=== PATIENT | female | born 1985 | race Caucasian/White ===

== ENCOUNTER 2017-04-10 03:07 | Observation (INO) | payer SELFPAY ==
[2017-04-10] MEDS ORDERED: NS 1,000 ML IV ONE ×2 (03:16→04:28)
[2017-04-10] MEDS ORDERED: HYDROmorphONE/DILAUDID 1 MG/ML INJ IVP ONE ×4 (03:16→05:47)
[2017-04-10] MEDS ORDERED: ONDANSETRON 4 MG/2 ML VIAL IVP ONE ×2 (03:17→03:37)
--- NOTE | 2017-04-10 03:24 | EDPHY ---
H & P Stated Complaint: LLQ ABDO PAIN, Vomiting since 0200 hours Time Seen by Provider: 04/10/17 03:16 HPI/ROS: HPI CHIEF COMPLAINT: Left low pelvic pain sudden onset. HISTORY OF PRESENT ILLNESS: Patient is a 32-year-old female, she is otherwise healthy, she has had an appendectomy she presents emergency room with sudden onset 1 hour ago left low adnexal pain. She describes as sharp stabbing. She denies flank pain. Denies urinary symptoms. Denies vaginal discharge. States complete her. 1 week ago. Does have history ovarian cyst. But never had pain like this. This sharp stabbing pain woke her up from sleep. She vomited multiple times. No diarrhea. She does ongoing nausea. She describes the pain as 8/10 left adnexal regions sharp stabbing. Constant. Does not radiate to her back. Denies fever. Denies trauma. Past Medical History: Ovarian cyst Past Surgical History: Appendectomy Social History: Denies daily use drugs alcohol tobacco products. Lives locally. Family History: Noncontributory. ROS REVIEW OF SYSTEMS: A comprehensive 10 point review of systems is otherwise negative aside from elements mentioned in the history of present illness. Exam Constitutional appears nontoxic, but uncomfortable, triage nursing summary reviewed, vital signs reviewed, awake/alert. Eyes normal conjunctivae and sclera, EOMI, PERRLA. HENT normal inspection, atraumatic, moist mucus membranes, no epistaxis, neck supple/ no meningismus, no raccoon eyes. Respiratory clear to auscultation bilaterally, normal breath sounds, no respiratory distress, no wheezing. Cardiovascular rate normal, regular rhythm, no murmur, no edema, distal pulses normal. Gastrointestinal soft, moderate left adnexal pain on exam, no palpable mass, will no left lower quadrant pain, no flank pain,, no rebound, no guarding, normal bowel sounds, no distension, no pulsatile mass. Genitourinary no CVA tenderness. Musculoskeletal no midline vertebral tenderness, full range of motion, no calf swelling, no tenderness of extremities, no meningismus, good pulses, neurovascularly intact. Skin pink, warm, & dry, no rash, skin atraumatic. Neurologic awake, alert and oriented x 3, AAOx3, moves all 4 extremities equally, motor intact, sensory intact, CN II-XII intact, normal cerebellar, normal vision, normal speech. Psychiatric normal mood/affect. Heme/Lymph/Immune no lymphadenopathy. Differential diagnosis includes but is not limited to and in no particular order: Reviewed cyst rupture, ovarian torsion, Bowel obstruction, appendicitis , gallbladder disease, diverticulitis, colitis, enteritis, perforated viscus, gastritis, GERD, esophagitis, urinary tract infection, pyelonephritis, kidney stones Medical Decision Making: Plan for this patient IV establishment IV fluid bolus , IV Dilaudid for pain control, IV Zofran nausea, check blood work, urinalysis, stat pelvic ultrasound. Re-evaluate. Re-evaluation: 0429: This patient continues to hill of left adnexal pain. She does state it does radiate to her left back slightly. Her urinalysis reviewed shows blood. She is not on her period. It is possible this is not ovarian cyst rupture or torsion and it is possible this is a kidney stone causing her pain. I have ordered her 15 mg IV Toradol as her creatinine is normal. I 2nd L fluid she still feels nauseous 6.25 Phenergan this time. Will re-evaluate. Ultrasound is here at this time and will image her ovaries. If this is normal. Will proceed with CT scan abdomen pelvis without contrast for flank pain evaluation of kidney stone. 0547AM: Patient is back from ultrasound. She still has ongoing left adnexal pain. Ultrasound results are pending at this time. 0553: I did re-evaluate her abdomen is soft there is no peritoneal signs but she has ongoing left adnexal left lower quadrant abdominal pain. She has received multiple rounds of IV Dilaudid and Toradol still has pain. She she distally he has received 2 L normal saline. Zofran and Phenergan. 0618AM: Patient's ultrasound results called to me by Dr. Kaiden Danielle. This shows a masslike structure 10 cm x 10 cm x 8 cm than case the left ovary. Additional to this and continuous with this large mass there is septic cystic structure 5 x 6 cm. They agree does have blood flow however given the amount of pain I do question that she have intermittent torsion or torsion of this ovary given how large this masses. I will talk to OBGYN. Most likely transfer this patient to the hospital for OBGYN to evaluate and possibly need for surgery. Additionally will update the patient. 0623AM: Consulted OBGYN Dr. Joseph, Who agrees to direct admit to OBGYN. Will transfer her to [facility]. When Patient arrives They are to call Dr. Devi When She arrives. Dr. Joseph Will Talked to Dr. Torres Who will see this patient. 0638: Patient updated about plan of care. She agrees to be transferred by ambulance to [facility]. Dr. Joseph with OBGYN is accepted. Dr. Vaughn will see patient upon arrival. Additionally there was a delay in her ultrasound as it was a complex case and required imaging the ultrasound took approximately an hour to obtain due to complexity of the case/images. 0640AM: Patient's pain is controlled at this time. She is resting. Pain Well controlled at this particular time after Fentantyl IV. [facility] has been called for transfer for this patient to direct admitted [facility] OBGYN floor. Further evaluation by OBGYN and possible surgical management. Source: Patient - Personal History LMP (Females 10-55): 8-14 Days Ago Current Tetanus/Diphtheria Vaccine: Unsure Current Tetanus Diphtheria and Acellular Pertussis (TDAP): Unsure - Medical/Surgical History Hx Asthma: No Hx Chronic Respiratory Disease: No Hx Diabetes: No Hx Cardiac Disease: No Hx Renal Disease: No Hx Cirrhosis: No Hx Alcoholism: No Hx HIV/AIDS: No Hx Splenectomy or Spleen Trauma: No Other PMH: Ovarian cysts. - Social History Smoking Status: Never smoked Constitutional: Initial Vital Signs Temperature (C) 36.4 C 04/10/17 03:14 Heart Rate 72 04/10/17 03:14 Respiratory Rate 20 04/10/17 03:14 Blood Pressure 131/100 H 04/10/17 03:14 O2 Sat (%) 100 04/10/17 03:14 O2 Delivery Mode Nasal Cannula O2 (L/minute) 3 Allergies/Adverse Reactions: No Known Allergies Allergy (Unverified 04/10/17 03:17) Home Medications: Medication Instructions Recorded NK [No Known Home Meds] 04/10/17 Medical Decision Making - Diagnostics Imaging Results: Imaging Impressions Pelvic/Renal Ultrasound 04/10/17 03:21 Impression: 1. Large multifaceted left adnexal mass with solid echogenic and cystic components. Features suggest large dermoid cyst. 2. Query torsion of the left adnexal mass given its unusual location anterior to the uterus. 3. Normal right ovary and uterus. The study was performed as an emergency on-call case and discussed by telephone with Dr. Renee at 6:20 a.m. The final interpretation is concordant with the original communication. - Data Points Laboratory Results: Laboratory Results 04/10/17 03:20 04/10/17 03:20 04/10/17 04/10/17 04/10/17 03:20 03:20 03:20 WBC RBC Hgb Hct MCV MCH MCHC RDW Plt Count MPV Neut % (Auto) Lymph % (Auto) [place] % (Auto) Eos % (Auto) Baso % (Auto) Nucleat RBC Rel Count Absolute Neuts (auto) Absolute Lymphs (auto) Absolute Monos (auto) Absolute Eos (auto) Absolute Basos (auto) Absolute Nucleated RBC Immature Gran % Immature Gran # Sodium 140 mEq/L mEq/L (134-144) Potassium 3.1 mEq/L L mEq/L (3.5-5.2) Chloride 108 mEq/L mEq/L (97-110) Carbon Dioxide 17 mEq/l L mEq/l (22-31) Anion Gap 15 mEq/L mEq/L (8-16) BUN 11 mg/dL mg/dL (7-23) Creatinine 0.7 mg/dL mg/dL (0.6-1.0) Estimated GFR > 60 Glucose 142 mg/dL H mg/dL (70-100) Calcium 9.7 mg/dL mg/dL (8.5-10.4) Total Bilirubin 0.4 mg/dL mg/dL (0.1-1.4) Conjugated Bilirubin 0.3 mg/dL mg/dL (0.0-0.5) Unconjugated Bilirubin 0.1 mg/dL mg/dL (0.0-1.1) AST 16 IU/L IU/L (14-46) ALT 25 IU/L IU/L (9-52) Alkaline Phosphatase 41 IU/L IU/L (38-126) Total Protein 7.3 g/dL g/dL (6.3-8.2) Albumin 4.2 g/dL g/dL (3.5-5.0) Lipase 66 IU/L IU/L (23-300) Beta HCG, Qual NEGATIVE Urine Color YELLOW Urine Appearance CLEAR Urine pH 6.0 (5.0-7.5) Ur Specific [place] 1.025 (1.002-1.030) Urine Protein NEGATIVE (NEGATIVE) Urine Ketones 1+ H (NEGATIVE) Urine Blood 1+ H (NEGATIVE) Urine Nitrate NEGATIVE (NEGATIVE) Urine Bilirubin NEGATIVE (NEGATIVE) Urine Urobilinogen 0.2 EU EU (0.2-1.0) Ur Leukocyte Esterase NEGATIVE (NEGATIVE) Urine RBC 1-3 /hpf /hpf (0-3) Urine WBC 0-1 /hpf /hpf (0-3) Ur Epithelial Cells 1+ /lpf /lpf (NONE-1+) Urine Bacteria TRACE /hpf H /hpf (NONE SEEN) Urine Mucus 2+ /lpf H /lpf (NONE-1+) Urine Glucose NEGATIVE (NEGATIVE) 04/10/17 03:20 WBC 10.84 10^3/uL H 10^3/uL (3.80-9.50) RBC 4.26 10^6/uL 10^6/uL (4.18-5.33) Hgb 12.8 g/dL g/dL (12.6-16.3) Hct 37.2 % L % (38.0-47.0) MCV 87.3 fL fL (81.5-99.8) MCH 30.0 pg pg (27.9-34.1) MCHC 34.4 g/dL g/dL (32.4-36.7) RDW 13.5 % % (11.5-15.2) Plt Count 272 10^3/uL 10^3/uL (150-400) MPV 10.9 fL fL (8.7-11.7) Neut % (Auto) 78.2 % H % (39.3-74.2) Lymph % (Auto) 12.1 % L % (15.0-45.0) [place] % (Auto) 8.5 % % (4.5-13.0) Eos % (Auto) 0.6 % % (0.6-7.6) Baso % (Auto) 0.3 % % (0.3-1.7) Nucleat RBC Rel Count 0.0 % % (0.0-0.2) Absolute Neuts (auto) 8.49 10^3/uL H 10^3/uL (1.70-6.50) Absolute Lymphs (auto) 1.31 10^3/uL 10^3/uL (1.00-3.00) Absolute Monos (auto) 0.92 10^3/uL H 10^3/uL (0.30-0.80) Absolute Eos (auto) 0.06 10^3/uL 10^3/uL (0.03-0.40) Absolute Basos (auto) 0.03 10^3/uL 10^3/uL (0.02-0.10) Absolute Nucleated RBC 0.00 10^3/uL 10^3/uL (0-0.01) Immature Gran % 0.3 % % (0.0-1.1) Immature Gran # 0.03 10^3/uL 10^3/uL (0.00-0.10) Sodium Potassium Chloride Carbon Dioxide Anion Gap BUN Creatinine Estimated GFR Glucose Calcium Total Bilirubin Conjugated Bilirubin Unconjugated Bilirubin AST ALT Alkaline Phosphatase Total Protein Albumin Lipase Beta HCG, Qual Urine Color Urine Appearance Urine pH Ur Specific [place] Urine Protein Urine Ketones Urine Blood Urine Nitrate Urine Bilirubin Urine Urobilinogen Ur Leukocyte Esterase Urine RBC Urine WBC Ur Epithelial Cells Urine Bacteria Urine Mucus Urine Glucose Medications Given: Discontinued Medications Bupivacaine HCl (Sensorcaine 0.25% Sdv) Confirm Administered Dose 30 ml .ROUTE .STK-MED ONE Stop: 04/10/17 10:00 Last Admin: 04/10/17 10:36 Dose: 30 ml Fentanyl (Sublimaze) 50 mcg IVP EDNOW ONE Stop: 04/10/17 06:24 Last Admin: 04/10/17 06:26 Dose: 50 mcg Hydromorphone HCl (Dilaudid) 0.5 mg IVP EDNOW ONE Stop: 04/10/17 03:17 Last Admin: 04/10/17 03:25 Dose: 0.5 mg Hydromorphone HCl (Dilaudid) 0.5 mg IVP EDNOW ONE Stop: 04/10/17 03:28 Last Admin: 04/10/17 03:45 Dose: 0.5 mg Hydromorphone HCl (Dilaudid) 0.5 mg IVP EDNOW ONE Stop: 04/10/17 04:59 Last Admin: 04/10/17 05:07 Dose: 0.5 mg Hydromorphone HCl (Dilaudid) 0.5 mg IVP EDNOW ONE Stop: 04/10/17 05:48 Last Admin: 04/10/17 06:09 Dose: Not Given Hydromorphone HCl (Dilaudid) 0.5 mg IVP EDNOW ONE Stop: 04/10/17 05:48 Last Admin: 04/10/17 05:58 Dose: 0.5 mg Sodium Chloride (Ns) 1,000 mls @ 0 mls/hr IV EDNOW ONE; Wide Open PRN Reason: Protocol Stop: 04/10/17 03:17 Last Admin: 04/10/17 03:26 Dose: 1,000 mls Sodium Chloride (Ns) 1,000 mls @ 0 mls/hr IV ONCE ONE PRN Reason: Wide Open Stop: 04/10/17 04:29 Last Admin: 04/10/17 04:33 Dose: 1,000 mls Cefazolin Sodium (Cefazolin Syringe) 2 gm in 20 mls @ 200 mls/hr IVP ONCALL ONE PRN Reason: Protocol Stop: 04/10/17 09:21 Last Admin: 04/10/17 09:57 Dose: 20 mls Ketorolac Tromethamine (Toradol) 15 mg IVP EDNOW ONE Stop: 04/10/17 04:27 Last Admin: 04/10/17 04:34 Dose: 15 mg Ondansetron HCl (Zofran) 4 mg IVP EDNOW ONE Stop: 04/10/17 03:18 Last Admin: 04/10/17 03:29 Dose: 4 mg Ondansetron HCl (Zofran) 4 mg IVP EDNOW ONE Stop: 04/10/17 03:38 Last Admin: 04/10/17 03:44 Dose: 4 mg Promethazine HCl (Phenergan) 6.25 mg IVP ONCE ONE Stop: 04/10/17 04:27 Last Admin: 04/10/17 04:34 Dose: 6.25 mg Departure - Departure Disposition: [facility] Clinical Impression: Ovarian mass, left Ovarian cyst Qualifiers: Laterality: left Qualified Code(s): N83.202 - Unspecified ovarian cyst, left side Abdominal pain Qualifiers: Abdominal location: left lower quadrant Qualified Code(s): R10.32 - Left lower quadrant pain Condition: Fair
[2017-04-10 03:28] LABS: % IMMATURE GRANULYOCYTES 0.3 % (0.0-1.1); ABSOLUTE IMMATURE GRANULOCYTES 0.03 10^3/uL (0.00-0.10); ADD DIFF? NO; ADD MORPH? NO; ADD SCAN? NO; ATYPICAL LYMPHOCYTE FLAG 0 (0-99); FRAGMENT RBC FLAG 0 (0-99); HEMATOCRIT 37.2 % (38.0-47.0); HEMOGLOBIN 12.8 g/dL (12.6-16.3); LEFT SHIFT FLG 0 (0-99); LIPEMIA HEMOLYSIS FLAG 90 (0-99); MEAN CELL HEMOGLOBIN CONCENTR. 34.4 g/dL (32.4-36.7); MEAN CELL VOLUME 87.3 fL (81.5-99.8); MEAN PLATELET VOLUME 10.9 fL (8.7-11.7); PLATELET CLUMPS FLAG 0 (0-99); PLATELET COUNT 272 10^3/uL (150-400); RED BLOOD CELL COUNT 4.26 10^6/uL (4.18-5.33); RED CELL DISTRIBUTION WIDTH 13.5 % (11.5-15.2)
[2017-04-10 03:40] LABS: ALANINE AMINOTRANSFERASE 25 IU/L (9-52); ALBUMIN 4.2 g/dL (3.5-5.0); ALKALINE PHOSPHATASE 41 IU/L (38-126); ANION GAP 15 mEq/L (8-16); ASPARTATE AMINOTRANSFERASE 16 IU/L (14-46); BILIRUBIN,TOTAL 0.4 mg/dL (0.1-1.4); BILIRUBIN-CONJUGATED 0.3 mg/dL (0.0-0.5); BILIRUBIN-UNCONJUGATED 0.1 mg/dL (0.0-1.1); CALCIUM 9.7 mg/dL (8.5-10.4); CARBON DIOXIDE 17 mEq/l (22-31); CHLORIDE 108 mEq/L (97-110); CREATININE 0.7 mg/dL (0.6-1.0); GLOMERULAR FILTRATION RATE > 60; GLUCOSE 142 mg/dL (70-100); POTASSIUM 3.1 mEq/L (3.5-5.2); SODIUM 140 mEq/L (134-144); TOTAL PROTEIN 7.3 g/dL (6.3-8.2)
[2017-04-10 04:15] LABS: COLOR YELLOW; LEUKOCYTE ESTERASE,URINE NEGATIVE (NEGATIVE); NITRITE,URINE NEGATIVE (NEGATIVE)
[2017-04-10] MEDS ORDERED: PROMETHAZINE HCL 25 MG/ML INJ ONE (04:26)
[2017-04-10] MEDS ORDERED: PROMETHAZINE HCL 25 MG/ML INJ IVP ONE (04:26)
[2017-04-10] MEDS ORDERED: KETOROLAC 15 MG/1 ML SDV ONE (04:26)
[2017-04-10] MEDS ORDERED: KETOROLAC 15 MG/1 ML SDV IVP ONE (04:26)
[2017-04-10 04:43] LABS: BACTERIA TRACE /hpf (NONE SEEN); MUCUS 2+ /lpf (NONE-1+); WBC,URINE 0-1 /hpf (0-3)
[2017-04-10] MEDS: HYDROmorphONE/DILAUDID 1 MG/ML INJ IVP ONE ×2 (05:57→06:09)
[2017-04-10] MEDS ORDERED: fentaNYL 100 MCG/2 ML INJ IVP ONE (06:23)
--- NOTE | 2017-04-10 09:06 | PDGENHP ---
History and Physical - Chief Complaint left lower qudrant pain - History of Present Illness 32-year-old G0 white female presented to [facility] (stand-alone ED/urgent care) at about 2AM this morning following being awakened by sharp LLQ pain an hour prior (@ 1AM). She states that she took Tylenol at home but pain got worse not better. At ED, she was evaluated and found to have negative bHCG and pelvic US showing complex >10cm cyst in left adnexa, cannot rule out torsion (but blood flow is seen to both ovaries). Patient reports LMP last 1-2 weeks. She reports no prior pregnancies. She states that she has previously had ovarian cysts (seen on US but never treated with surgery). She is not taking OCP or any form of contraception. The only prior surgery she reports is a mini- laparotomy appendectomy performed approximately 20 years ago (when she was 12). She is overall very healthy. She takes vitamins and supplements but no current medications. She denies any chronic medical problems or prior pregnancies. She denies fever, chills, constipation or diarrhea. She admits to nausea and vomiting (only since pain began). She denies any vaginal bleeding. History Information - Allergies/Home Medication List Allergies/Adverse Reactions: No Known Allergies Allergy (Unverified 04/10/17 03:17) Home Medications: NK [No Known Home Meds] 04/10/17 [Last Taken Unknown] I have personally reviewed and updated: family history, medical history, social history, surgical history - Past Medical History no pertinent PMH - Surgical History Reports: appendectomy Additional surgical history: mini-laparotomy appendectomy performed approximately 20 years ago - Family History Positive for: non-pertinent - Social History Smoking Status: Never smoked Alcohol Use: None Drug Use: None Review of Systems Review of Systems: Constitutional: Reports: no symptoms EENMT: Reports: no symptoms Cardiac: Reports: no symptoms Respiratory: Reports: no symptoms Gastrointestinal: Reports: vomitting, nausea, other (LLQ pain since 1AM) Genitourinary: Reports: other (stabbing LLQ/pelvic pain since 1AM) Muscolosketal: Reports: no symptoms Skin: Reports: no symptoms Neurological: Reports: no symptoms Hematologic/Lymphatic: Reports: no symptoms Immunologic/Allergy: Reports: no symptoms Physical Exam Physical Exam: Temp Pulse Resp BP Pulse Ox 36.6 C 88 16 128/82 H 96 04/10/17 08:05 04/10/17 08:05 04/10/17 08:05 04/10/17 08:05 04/10/17 08:05 O2 (L/minute) 3 Constitutional: no apparent distress, other (s/p IV Fentanyl, feeling more comfortable than when she arrived at ED) Eyes: PERRL Ears, Nose, Mouth, Throat: moist mucous membranes Cardiovascular: regular rate and rhythym, no murmur, rub, or gallop Respiratory: no respiratory distress, clear to auscultation Gastrointestinal: normoactive bowel sounds, tenderness, other (no guarding, but tender to palpation in LLQ with deep palpation) Genitourinary: no bladder tenderness Skin: warm, normal color Musculoskeletal: full muscle strength, no muscle tenderness, normal joint ROM Neurologic: AAOx3, sensation intact bilaterally Psychiatric: interacting appropriately, anxious Lab Data & Imaging Review 04/10/17 03:20 04/10/17 03:20 WBC 10.84 10^3/uL (3.80-9.50) H 04/10/17 03:20 RBC 4.26 10^6/uL (4.18-5.33) 04/10/17 03:20 Hgb 12.8 g/dL (12.6-16.3) 04/10/17 03:20 Hct 37.2 % (38.0-47.0) L 04/10/17 03:20 MCV 87.3 fL (81.5-99.8) 04/10/17 03:20 MCH 30.0 pg (27.9-34.1) 04/10/17 03:20 MCHC 34.4 g/dL (32.4-36.7) 04/10/17 03:20 RDW 13.5 % (11.5-15.2) 04/10/17 03:20 Plt Count 272 10^3/uL (150-400) 04/10/17 03:20 MPV 10.9 fL (8.7-11.7) 04/10/17 03:20 Neut % (Auto) 78.2 % (39.3-74.2) H 04/10/17 03:20 Lymph % (Auto) 12.1 % (15.0-45.0) L 04/10/17 03:20 [place] % (Auto) 8.5 % (4.5-13.0) 04/10/17 03:20 Eos % (Auto) 0.6 % (0.6-7.6) 04/10/17 03:20 Baso % (Auto) 0.3 % (0.3-1.7) 04/10/17 03:20 Nucleat RBC Rel Count 0.0 % (0.0-0.2) 04/10/17 03:20 Absolute Neuts (auto) 8.49 10^3/uL (1.70-6.50) H 04/10/17 03:20 Absolute Lymphs (auto) 1.31 10^3/uL (1.00-3.00) 04/10/17 03:20 Absolute Monos (auto) 0.92 10^3/uL (0.30-0.80) H 04/10/17 03:20 Absolute Eos (auto) 0.06 10^3/uL (0.03-0.40) 04/10/17 03:20 Absolute Basos (auto) 0.03 10^3/uL (0.02-0.10) 04/10/17 03:20 Absolute Nucleated RBC 0.00 10^3/uL (0-0.01) 04/10/17 03:20 Immature Gran % 0.3 % (0.0-1.1) 04/10/17 03:20 Immature Gran # 0.03 10^3/uL (0.00-0.10) 04/10/17 03:20 Sodium 140 mEq/L (134-144) 04/10/17 03:20 Potassium 3.1 mEq/L (3.5-5.2) L 04/10/17 03:20 Chloride 108 mEq/L (97-110) 04/10/17 03:20 Carbon Dioxide 17 mEq/l (22-31) L 04/10/17 03:20 Anion Gap 15 mEq/L (8-16) 04/10/17 03:20 BUN 11 mg/dL (7-23) 04/10/17 03:20 Creatinine 0.7 mg/dL (0.6-1.0) 04/10/17 03:20 Estimated GFR > 60 04/10/17 03:20 Glucose 142 mg/dL (70-100) H 04/10/17 03:20 Calcium 9.7 mg/dL (8.5-10.4) 04/10/17 03:20 Total Bilirubin 0.4 mg/dL (0.1-1.4) 04/10/17 03:20 Conjugated Bilirubin 0.3 mg/dL (0.0-0.5) 04/10/17 03:20 Unconjugated Bilirubin 0.1 mg/dL (0.0-1.1) 04/10/17 03:20 AST 16 IU/L (14-46) 04/10/17 03:20 ALT 25 IU/L (9-52) 04/10/17 03:20 Alkaline Phosphatase 41 IU/L (38-126) 04/10/17 03:20 Total Protein 7.3 g/dL (6.3-8.2) 04/10/17 03:20 Albumin 4.2 g/dL (3.5-5.0) 04/10/17 03:20 Lipase 66 IU/L (23-300) 04/10/17 03:20 Beta HCG, Qual NEGATIVE 04/10/17 03:20 Urine Color YELLOW 04/10/17 03:20 Urine Appearance CLEAR 04/10/17 03:20 Urine pH 6.0 (5.0-7.5) 04/10/17 03:20 Ur Specific [place] 1.025 (1.002-1.030) 04/10/17 03:20 Urine Protein NEGATIVE (NEGATIVE) 04/10/17 03:20 Urine Ketones 1+ (NEGATIVE) H 04/10/17 03:20 Urine Blood 1+ (NEGATIVE) H 04/10/17 03:20 Urine Nitrate NEGATIVE (NEGATIVE) 04/10/17 03:20 Urine Bilirubin NEGATIVE (NEGATIVE) 04/10/17 03:20 Urine Urobilinogen 0.2 EU (0.2-1.0) 04/10/17 03:20 Ur Leukocyte Esterase NEGATIVE (NEGATIVE) 04/10/17 03:20 Urine RBC 1-3 /hpf (0-3) 04/10/17 03:20 Urine WBC 0-1 /hpf (0-3) 04/10/17 03:20 Ur Epithelial Cells 1+ /lpf (NONE-1+) 04/10/17 03:20 Urine Bacteria TRACE /hpf (NONE SEEN) H 04/10/17 03:20 Urine Mucus 2+ /lpf (NONE-1+) H 04/10/17 03:20 Urine Glucose NEGATIVE (NEGATIVE) 04/10/17 03:20 Imaging Review: Pelvic US reviewed; complex left adnexal mass (at least 10 cm diameter), blood both ovaries noted, no obvious free fluid in pelvis. Assessment & Plan Assessment: 32-year-old white female with severe pain secondary to left 10 cm adnexal mass, possible ovarian torsion. Plan: 1. Plan for surgery this morning: After reviewing options of surgery (for immediate diagnosis and treatment of ovarian torsion--if present--and other adnexal abnormalities, i.e., large ovarian cyst) versus conservative management (continued IV pain control throughout the day) and reviewing risk and benefits associated with both options, patient consented to diagnostic laparoscopy and treatment of adnexal abnormalities in OR. Patient has been NPO since midnight. 2. Pain control: Continue pain management with IV Fentanyl as needed. 3. Diet: Remain NPO until OR @ 11AM.
--- NOTE | 2017-04-10 09:15 | PDHPUP ---
History & Physical Update H&P update statement: This history and physical update is based on an assessment of the patient which was completed after admission or registration (within 24 hours), but prior to the surgery/procedure. H&P update: H&P reviewed & patient examined, no change in patient's condition since H&P completed
[2017-04-10] MEDS ORDERED: ceFAZolin 2 GM/SWFI 2 GM/20 ML SYR IVP ONE (09:16)
[2017-04-10] MEDS ORDERED: fentaNYL 100 MCG/2 ML INJ IVP PRN (09:16)
[2017-04-10] MEDS ORDERED: MIDAZOLAM 2 MG/2 ML VIAL ONE (09:58)
[2017-04-10] MEDS ORDERED: BUPIVACAINE 0.25% 30 ML SDV ONE (09:59)
[2017-04-10] MEDS ORDERED: fentaNYL 100 MCG/2 ML INJ ONE (10:00)
[2017-04-10] MEDS ORDERED: PROPOFOL/EMULSION 500 MG/50 ML BOTTLE IV ONE (10:00)
[2017-04-10] MEDS ORDERED: DEXAMETHASONE 4 MG/ML VIAL IVP PRN (10:19)
[2017-04-10] MEDS ORDERED: MEPERIDINE 25 MG/ML SYR IVP PRN (10:19)
[2017-04-10] MEDS ORDERED: LR 500 ML IV PRN (10:19)
[2017-04-10] MEDS ORDERED: ONDANSETRON 4 MG/2 ML VIAL IVP PRN ×2 (10:19→14:30)
[2017-04-10] MEDS ORDERED: NS 500 ML IV PRN (10:19)
[2017-04-10] MEDS ORDERED: ALBUTEROL 3 ML DEYVIAL IH PRN (10:19)
[2017-04-10] MEDS ORDERED: NALOXONE HCL 0.4 MG/ML INJ IVP PRN (10:19)
[2017-04-10] MEDS ORDERED: METOCLOPRAMIDE 10 MG/2 ML VIAL IVP PRN (10:19)
[2017-04-10] MEDS ORDERED: SUGAMMADEX SODIUM 200 MG/2 ML VIAL IVP ONE (10:30)
[2017-04-10] MEDS ORDERED: METOCLOPRAMIDE 10 MG/2 ML VIAL ONE (10:30)
[2017-04-10] MEDS ORDERED: KETOROLAC 30 MG/1 ML SDV ONE (10:30)
[2017-04-10] MEDS ORDERED: RANITIDINE 50 MG/2 ML VIAL ONE (10:30)
[2017-04-10] MEDS ORDERED: LIDOCAINE 2% 5 ML SDV ONE (10:30)
[2017-04-10] MEDS ORDERED: DEXAMETHASONE 4 MG/ML VIAL ONE (10:30)
[2017-04-10] MEDS ORDERED: ONDANSETRON 4 MG/2 ML VIAL ONE (10:30)
[2017-04-10] MEDS ORDERED: ROCURONIUM 50 MG/5 ML VIAL ONE ×2 (10:30→10:41)
[2017-04-10] MEDS ORDERED: PROPOFOL 200 MG/20 ML VIAL ONE (11:16)
--- NOTE | 2017-04-10 13:21 | POSTOPPROG ---
Post Op Note Date of Operation: 04/10/17 Surgeon: Deven Vaughn Principal Product Manager: Georgina Stone DO Anesthesia: GET(General Endotracheal) Pre-op Diagnosis: 10 cm complex adnexal cyst Post-op Diagnosis: Large dermoid cyst of left ovary Indication: 32 yo with acute pelvic pain Procedure: Diagnostic Laparoscopy, LSO Findings: Large dermoid cyst of left ovary, endometriosis Inf/Abcess present in the surg proc area at time of surgery?: No Depth: Organ Space EBL: Minimal Complications: None
[2017-04-10] MEDS ORDERED: OXYCODONE/APAP 5/325 TAB PO PRN ×2 (13:51→14:30)
[2017-04-10 14:35] VITALS: O2SAT 97
--- NOTE | 2017-04-10 15:15 | SUROPNOTE ---
[facility] Operative Report - Surgery OPERATIVE REPORT DATE OF OPERATION: 04/10/2017 SURGEON: Cesar Vaughn MD [employer] SUPERVISOR: OR Staff ANESTHESIA: General Endotracheal PREOPERATIVE DIAGNOSES: 1. Acute pelvic pain. 2. 10 cm complex left adnexal mass. POSTOPERATIVE DIAGNOSES: 1. Large dermoid cyst on left ovary. 2. Endometriosis lesions on pelvic peritoneum. PROCEDURES PERFORMED: 1. Diagnostic laparoscopy 2. Left salpingo-oophorectomy FINDINGS: Enlarged (at least 10 cm diameter) left ovary with multiple lobulations. Smaller major cyst (at least 4 cm diameter) filled with clear yellowish fluid. Larger (6 cm) cyst consistent with dermoid--thick yellow fluid and hair within cyst. Normal uterus, normal right fallopian tube and ovary. Lesions (blue and red) consistent with endometriosis noted on left pelvic sidewall near posterior cul-de-sac and on anterior uterus near bladder. Adhesions were also noted from prior mini-laparotomy for appendectomy. Appendix was surgically absent. Bowel, bowel mesentery, and peritoneal cavity appear normal otherwise and without evidence of injury from port placement. Liver edge and gall bladder were seen and appear normal. SPECIMENS: Left ovary (containing cyst suspicious for mature dermoid), left fallopian tube. EBL: Minimal INDICATIONS: 32-year-old G0 white female with several hours' history of acute and worsening LLQ pain. She presented to ED early this morning with acute pelvic pain, nausea and vomiting. Pain is still severe with IV Fentanyl. Pelvic US revealed complex left adnexal mass. test negative. After reviewing management options (conservative management, medical management, and laparoscopy ), patient preferred surgery as next step. DESCRIPTION OF PROCEDURE: After appropriate consent was obtained patient was taken to OR. GET anesthesia was redosed and found to be adequate. 2 grams of Ancef was given IV. Patient was placed in dorsal lithotomy position with Hardeep stirrups, then prepped and draped according to usual sterile fashion. Time out was performed. At perineum, with hips flexed, bimanual exam under anesthesia was performed. A small, mobile anteverted uterus was palpated. Left adnexal fullness was palpated. Lopez catheter was anchored. Speculum was placed in vagina. Anterior lip of cervix was grasped with single-tooth tenaculum. [place] uterine manipulator was placed with tip through cervix and handle clicked into tenaculum handle. Speculum was removed, hips were taken out of flexion, and attention moved to abdomen. With patient laying flat, the skin immediately below the umbilicus was injected with 0.25% Marcaine with epi. Scalpel was used to make 5 mm skin incision at this location. Using Optiview method, a 5-mm trocar was placed into the peritoneal cavity. Peritoneal placement was confirmed with opening pressure of 4 -mmHg. CO2 was introduced into peritoneal cavity to a pressure of 15-mmHg. Patient was placed in Trendelenburg position to optimize visualization of pelvic organs. Additional LLQ 15-mm trocar and 5-mm RLQ trocars were placed under direct visualization. Bowel, mesentery and blood vessels were examined below entry sites and no injury was noted. Systematic examination of liver, gall bladder, bowel and pelvis was performed. Adhesions and prominent ovarian cyst were immediately noted (see findings). Pictures were taken of left and right ovaries and tubes, the uterus, the peritoneum overlying bladder and the posterior cul-de-sac. Dr. Stone was called and requested to assist with remaining portion of procedure. Minor (smaller) cyst was drained with laparoscopic aspiration needle. Aspiration of larger cyst was attempted, but dermoid-cyst fluid was too thick. Upon thorough examination of cyst and ovary, not much viable ovarian tissue was noted. Decision was made to remove ovary and tube. Ligasure vessel sealer was used to cut, seal and ligate left infundibulopelvic ligament and left fallopian tube. Specimen was placed in Endo-catch bag. Within bag the cyst was further opened and drained. Specimen and bag were removed through larger LLQ port. Irrigation and suction were performed throughout pelvis. Excellent hemostasis noted at pedicle. Endometriosis lesions were closely examined but determined to be too close to left ureter and bladder mucosa for fulguration. Instruments and trocars were removed from peritoneal cavity under direct visualization. CO2 gas was released from peritoneal cavity. Fascia incision (at 15-mm LLQ port) was approximated with 0-Vicryl stitch, using UR6 needle. Skin incisions x 3 were approximated with subcuticular 4-0 monocryl stitches, steri- strips and bandaged appropriately. At the end of procedure sponge, lap and needle count was correct x 2. Patient tolerated procedure well and she was taken to PACU awake and in stable condition.
[2017-04-10 16:11] VITALS: BP 101/68; PULSE 73; RESP 16; TEMP 97.3
--- NOTE | 2017-04-10 17:32 | SOAPPROG ---
SOAP Progress Note Assessment/Plan: Assessment: 32-year-old G0 WF POD#0 s/p laparoscopic left salpingo-oophorectomy. Doing well. Plan: 1. Discharge home. 2. Post-op follow-up: Follow-up with Dr. Stone in 2 weeks. 3. Left hand numbness tingling (superficial radial nerve distribution). Reassurance given. Likely due to compression of shoulder/arm during surgery. Patient will call clinic if symptoms have not resolved in 72 hours. 04/10/17 17:29 Subjective: Doing well. Pain well controlled. Patient reports numbness tingling in 1st through 3rd digits and skin of forearm of left hand. No other complaints. Objective: Vital Signs Temp Pulse Resp BP Pulse Ox 36.3 C 73 16 101/68 97 04/10/17 16:11 04/10/17 16:11 04/10/17 16:11 04/10/17 16:11 04/10/17 16:11 04/09/17 04/10/17 04/11/17 05:59 05:59 05:59 Intake Total 2700 Output Total 20 Balance 2680 Physical Exam - Physical Exam General Appearance: alert, no apparent distress Neck: supple Cardiac/Chest: regular rate, rhythm Abdomen: normal bowel sounds, soft Skin: normal color, warm/dry Neuro/Psych: alert, normal mood/affect, oriented x 3, other (numbness and tingling in 1st-3rd digits, palm and forearm in superficial radial nerve of left arm) ICD10 Worksheet Patient Problems: Problems Problem Status Onset Abdominal pain Acute Ovarian cyst Acute Ovarian mass, left Acute
[2017-04-10] MEDS ORDERED: DOCUSATE SODIUM 100 MG CAP PO PRN (17:35)
[2017-04-10] MEDS ORDERED: PROMETHAZINE HCL 25 MG TAB PO PRN (17:35)
--- NOTE | 2017-04-10 18:01 | PDANEPAE ---
ANE Past Medical History - Pulmonary History Hx Oxygen in Use at Home: No Hx Sleep Apnea: No Sleep Apnea Screening Result - Last Documented: Negative - Endocrine History Hx Diabetes: No ANE Review of Systems Review of Systems: ANE Patient History - Allergies Allergies/Adverse Reactions: No Known Allergies Allergy (Unverified 04/10/17 03:17) - NPO status NPO Since - Liquids (Date): 04/09/17 NPO Since - Liquids (Time): 12:00 NPO Since - Solids (Date): 04/09/17 NPO Since - Solids (Time): 12:00 - Smoking Hx Smoking Status: Never smoked - Alcohol Use Alcohol Use: None ANE Labs/Vital Signs - Labs Result Diagrams: 04/10/17 03:20 04/10/17 03:20 - Vital Signs Blood Pressure: 101/68 Heart Rate: 73 Respiratory Rate: 16 O2 Sat (%): 97 Height: 162.56 cm Weight: 65.771 kg ANE Physical Exam - Airway Neck exam: FROM Mallampati Score: Class 1 Mouth exam: normal dental/mouth exam - Pulmonary Pulmonary: no respiratory distress, no rales or rhonchi, clear to auscultation - Cardiovascular Cardiovascular: regular rate and rhythym, no murmur, rub, or gallop - ASA Status ASA Status: I, E ANE Anesthesia Plan Anesthesia Plan: general endotracheal anesthesia
--- NOTE | 2017-04-10 18:02 | POSTANESTH ---
Post Anesthetic Evaluation Cardiovascular Status: Normal, Stable Respiratory Status: Normal, Stable Level of Consciousness/Mental Status: Can Participate in Eval, Mildly Sleepy, Arousable Pain Control: Adequate, Prn Tx Ordered Nausea/Vomiting Control: Adequate, Prn Tx Ordered Complications Possibly Related to Anesthesia: None Noted
[2017-04-11] MEDS ORDERED: IBUPROFEN 600 MG TAB PO SCH (14:32)
== END 2017-04-10 18:45 | disposition home or self-care (01) ==
LOC: CED 03:07 → INTOOBSV 06:37 → CEDHOLD 06:37 → FOB 07:50
PROVIDERS: ADMIT Obstetrics & Gynecology; ATTEND Obstetrics & Gynecology
PROC: 0UB14ZZ Excision of Left Ovary, Percutaneous Endoscopic Approach (ICD-10-PCS; principal; 2017-04-10 09:30)
PROC: 0UB64ZZ Excision of Left Fallopian Tube, Percutaneous Endoscopic Approach (ICD-10-PCS; principal; 2017-04-10 09:30)
DX: D39.12 Neoplasm of uncertain behavior of left ovary (principal); N80.3 Endometriosis of pelvic peritoneum
CPT/HCPCS: 76856-PO; 80048-PO; 80076-PO; 81003-PO; 81015-PO; 83690-PO; 84703-PO; 85025-PO; 96374; G0378; J0690; J1100; J1170; J1885; J2250; J2405; J2550; J2704; J2765; J2780; J3010